=== PATIENT | male | born 1980 | race African-American/Black ===

== ENCOUNTER 2016-07-22 00:41 | Emergency (ER) | payer BC ==
[~2016-07-22] VITALS: Ht 175.3 cm; Wt 100.7 kg
[2016-07-22 01:20] LABS: HEMATOCRIT 32.7 % (38.0-50.0); MCH 21.7 PG (29.0-34.0); MCHC 30.9 G/DL (30.0-36.0); MCV 70.3 FL (86-99); MEAN PLAT.VOLUME 10.1 uM^3 (9.0-12.4); PLATELET COUNT 378 K/uL (156-360); RBC DIS.WIDTH-CV 19.5 % (11.8-14.6); RBC DIS.WIDTH-SD 49.3 % (39-53); RED BLOOD COUNT 4.65 M/uL (4.00-5.50); WHITE BLOOD COUNT 4.3 K/uL (4.1-10.2)
[2016-07-22 01:31] LABS: CHLORIDE 106 mEq/L (99-109); SODIUM 139 mEq/L (136-147)
[2016-07-22 01:33] LABS: GLUCOSE 100 mg/dL (70-99)
[2016-07-22 01:34] LABS: ANION GAP 11 MEQ/L (2-14)
[2016-07-22 01:38] LABS: UREA NITROGEN (BUN) 14 mg/dL (9-23)
[2016-07-22 01:40] LABS: GFR ESTIMATE (CALCULATED) > 59 mL/min/
[2016-07-22 01:43] LABS: TROP-I INTERPRETATION NEGATIVE; TROPONIN-I < 0.01 ng/mL (0.0-0.30)
[2016-07-22] MEDS ORDERED: HYDROCHLOROTHIA25 MG PO (05:58)
[2016-07-22] MEDS ORDERED: PRINIVIL20 MG PO (05:58)
[2016-07-22 06:15] VITALS: BP 147/90
== END 2016-07-22 06:17 | disposition left against medical advice (07) ==
LOC: EME 00:41
DX: I10 Essential (primary) hypertension (principal); R20.0 Anesthesia of skin; H53.8 Other visual disturbances; Z76.0 Encounter for issue of repeat prescription; F17.200 Nicotine dependence, unspecified, uncomplicated
CPT/HCPCS: 71020; 80048; 84484; 85027; 93005; 99281; 99284